=== PATIENT | male | born 1940 | race Caucasian/White ===

== ENCOUNTER 2017-09-06 15:56 | Inpatient (IN) | payer MEDICARE ==
[~2017-09-06] VITALS: Ht 177.8 cm; Wt 82.1 kg
[~2017-09-06 15:56] MED LIST: ADULT LOW DOSE81 MG PO; AMPICILLIN SOD500 MG PO; ASPIRIN; ASPIRIN EC81 M1; ASPIRIN81 M2 PO; BAYER CHEWABLE81 MG PO; BENICAR20 MG PO; BENICAR40 MG; CARAFATE1 GM/10 ML PO; CIPRO500 MG/5 M PO; CLONIDINE0.1; DEXILANT60 MG PO; FAMOTIDINE PO; FOLIC ACID 40400 MC1 PO; IMDUR 30 MG TAB30 M1 PO; IRON325 PO; IRON55 MG PO; LOPRESSOR25 PO; LOVASTAT20 PO; MIRALAX17 G1 PO; NITROGLYCERIN0.4 MG SL; NITROSTAT0.4 M1 SUBLING; NORCO 5-325 TA1 EACH PO; NORVASC 2.5 MG2.5 M1; NORVASC 5 MG TAB5 MG; PLAVIX 75 MG TA75 M1 PO; PLAVIX 75 MG TA75 MG PO; PRAVACHOL; PRAVACHOL40 MG PO; PREVACID30 MG PO; PRILOSEC 20 MG20 MG PO; PROPAFENONE 15150 MG PO; RITALIN10 MG; RITALIN10 MG PO; TOPROL XL25 MG PO; TOPROL XL50 MG PO; TYLENOL325 MG PO; VITAMIN B-12500 MCG PO; VITAMIN B12 1000MCG PO; ZOCOR40 MG PO
[2017-09-06] MEDS ORDERED: NITRO-DUR1 EAC1 TRANSDERM (16:48)
[2017-09-06] MEDS ORDERED: LOVASTATIN 20 M20 MG PO (16:49)
[2017-09-06] MEDS ORDERED: BENICAR40 MG PO (16:50)
[2017-09-06] MEDS ORDERED: PREDNISONE 10 M10 MG PO (16:50)
[2017-09-06] MEDS ORDERED: PREVACID30 MG PO (16:51)
[2017-09-06] MEDS ORDERED: BAYER CHEWABLE81 MG PO (16:52)
[2017-09-06] MEDS ORDERED: NORCO 5-325 TA1 EACH PO (16:54)
--- NOTE | 2017-09-06 18:22 | NUR ---
77 YEAR OLD MALE PATIENT ADMITTED TO ROOM 324 WITH A DX OF RHABDOMYLOSIS AND RIGHT CLAVICLE SEPARATION. PT STATES HE FELL DOWN THE STAIRS IN HIS HOME AND WAS UNABLE TO REACH HIS CELL PHONE TO CALL FOR HELP. PT LIVES WITH HIS BUT SHE IS CURRENTLY OUT OF TOWN. 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 PT'S LEFT LOWER LEG HAS BEEN PARALYZED SINCE THAT TIME AND HE USES A WHEELCHAIR TO GET AROUND. ADMISSION HISTORY AND ASSESSMENT COMPLETED. PT IS A/O X4. I INSTRUCTED HIM ON THE CALL, DON'T FALL PROTOCOL AND ORIENTED HIM TO THE ROOM, BED CONTROLS AND CALL LIGHT. FALL PRECAUTIONS IMPLEMENTED.
[2017-09-06 20:13] VITALS: BP 163/91
[2017-09-07 04:37] LABS: CALCIUM 7.3 mg/dL (8.5-10.1); CREATININE 0.8 mg/dL (0.6-1.3); HEMATOCRIT 28.8 % (42.0-52.0); HEMOGLOBIN 9.9 gm/dL (14.0-18.0); MCH 34.4 pg (26.0-34.0); MCHC 34.5 g/dL (28.0-37.0); MCV 99.7 fL (80.0-100.0); MPV 6.5 fl. (7.2-11.1); POTASSIUM 3.7 mmol/L (3.5-5.1); RBC 2.89 mil/uL (4.50-6.00); RDW-CV 13.8 % (10.5-14.5); WBC 4.5 thou/uL (4.0-11.0)
--- NOTE | 2017-09-07 05:42 | NUR ---
ASSUMED PT CARE AT 1930. PT A&O X4, COMPLAINING ABOUT TEMPERATURE IN ROOM. FAN OBTAINED TO CREATE AIR FLOW. HX OF RHABDOMYLOSIS AND RIGHT CLAVICLE SEPARATION WELL T4 COMPRESSION FRACTURE. PT HAS EXTENSIVE BRUISING ON BOTH ARMS AND RIGHT SHOULDER AND VARIOUS BRUISES ON LEGS. PT HAS CUT ABOVE AND BELOW LEFT EYE, PICTURE IN CHART. PT DENIES ANY BED SORES, ADAMANTLY REFUSED TO LET NURSING STAFF SEE HIS POSTERIOR. 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 PT LEFT LOWER LEG PARALYZED SINCE THAT TIME, USES WHEELCHAIR TO GET AROUND. PT ANGRY THAT BED ALARM WENT OFF WHEN HE SAT UP ON SIDE OF BED. PT DOES NOT HAVE HOME MED RITALIN, PT CURRENTLY OUT OF TOWN AND PT REFUSES TO INFORM HER OF FALL. SIGNED ADMISSION PAPERWORK, PLACED IN CHART. CALL LIGHT AND FREQUENTLY USED ITEMS WITHIN REACH. HOURLY ROUNDING IN PROGRESS, WILL CONTINUE TO MONITOR.
[2017-09-07 08:36] VITALS: BP 165/85
--- NOTE | 2017-09-07 10:05 | NUR ---
Nutrition: Pt admitted to [facility] with TBI, rhabdo. PMHx: guillain barre, HTN, CAD, chronic debility/uses wheelchair. Pt has UTI and SIRS. Wt: 181#. Eating 100% of Regular diet. BG WNL, albumin 3.3. No nutritional concerns at this time. Will follow pt weekly.
--- NOTE | 2017-09-07 18:32 | NUR ---
PT IS UP WITH ASSIST OF 1 AND GAITBELT. 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 I HAVE DISCUSSED HOME MEDICATIONS WITH PT TO REASURE HIM HE IS GETTING SAME MEDICATIONS WHILE HERE. RITALIN IS IN PHARMACY TO BE IDENTIFIED FROM HOME. DRY SCAB INTACT TO LT UPPER AND LOWER EYE. PT HAS MULTIPLE BRUSING OVER BODY FROM FALL. PT REFUSES TO LET NURSING OR THRAPIES INSPECT SKIN OF BUTTOX AND DENIES ANY SKIN PROBLEMS IN THAT AREA. PT DOES OWN [facility]. PT ALERT AND ABLE TO VOICE NEEDS BUT IS FORGETFULL.
[2017-09-07 20:21] VITALS: BP 165/71
--- NOTE | 2017-09-07 23:31 | NUR ---
ASSUMED CARE AT 1930. PATIENT S/P FALL WITH RHABDO, TBI, CONCUSSION, FACIAL BRUISING AND LACERATIONS. HX GUILLIAN BARRE. RESTING IN BED. TAKES PILLS WHOLE WITH WATER. ASSISTED WITH TURNS. BRUISING AND SCABBING NOTED OVER LEFT EYE. VOIDS PER URINAL. USES CALL LITE. REFUSES BED ALARM. HOURLY ROUNDS CONTINUE. CALL LITE IN REACH.
--- NOTE | 2017-09-08 00:21 | NUR ---
PATIENT REFUSES TURNS DESPITE EDUCATION.
--- NOTE | 2017-09-08 03:45 | NUR ---
C/O FEELING LIKE HE "BROKE A FEVER." BED LINENS WERE DAMP FROM PERSPIRATION. TEMP 98.2 ORALLY. LINENS CHANGED, SHIRT REMOVED, GOT INTO HOSPITAL GOWN. GIVEN APAP FOR C/O FEVER. HOURLY ROUNDS CONTINUE.
--- NOTE | 2017-09-08 05:55 | NUR ---
SLEPT MOST OF THE NIGHT. VOIDED PER URINAL. HOURLY ROUNDS CONTINUE. PATIENT REFUSES BED ALARM AND REFUSES TO CHANGE POSITIONS. STATES THAT HIS SHOULDERS ARE MORE COMFORTABLE WHILE HE IS ON HIS BACK. HOURLY ROUNDS CONTINUE. CALL LITE IN REACH.
[2017-09-08 07:50] VITALS: BP 142/94
--- NOTE | 2017-09-08 15:32 | NUR ---
ASSUMED CARE AT 0730. ALERT ORIENTED PLEASANT COOPERATIVE. HX OF TBI CONCUSSION AND PAST HX OF TOYA ROJAS LLE WEAKNESS FROM Inocencio ROJAS IN 2002. TRANSFERS WITH SBA G BELT SQUAT PIVOT FROM SITTING EDGE OF BED TO W/C. USES CALL LIGHT APPROPRIATELY FOR ASSIST. FEEDS SELF TAKES MEDS WITHOUT DIFFICULTY. PARTICIPATING IN THERAPIES TODAY. UP IN W/C SINCE BREAKFAST. STATES FEELING A DULL HEADACHE AND KIND OF FOGGY HEADED. DR. HANSEN CHANGED RITALIN TO TID AND 2 TABS PRN. TYLENOL 2 TABS PO FOR H/A LATE AFTERNOON.
[2017-09-08 20:19] VITALS: BP 124/71
--- NOTE | 2017-09-09 03:54 | NUR ---
PT NOT SLEEPING WELL HOPED. HAS HAD C/O NECK PAIN AND HEADACHE DURING THE NIGHT. PAIN MEDS GIVEN WITH SOME RELIEF. WHILE SITTING UP IN BED, PAIN STARTED TO RADIATE MORE TO SHOULDER. PT FRUSTRATED HE WANTS TO BE ABLE TO SLEEP BETTER. WILL CONTINUE TO MONITOR.
[2017-09-09 04:30] LABS: ABSOLUTE EOSINOPHILS 0.1 thou/uL (0.0-0.7); ABSOLUTE LYMPHOCYTES 0.7 thou/uL (0.8-5.3); ABSOLUTE MONOCYTES 0.6 thou/uL (0.0-1.2); ABSOLUTE NEUTROPHILS 3.3 thou/uL (1.6-8.1); BASOPHILS 0.5 %; EOSINOPHILS 1.1 %; HEMOGLOBIN 9.6 gm/dL (14.0-18.0); LYMPHOCYTES 14.7 %; MCH 34.2 pg (26.0-34.0); MCHC 34.4 g/dL (28.0-37.0); MCV 99.6 fL (80.0-100.0); MONOCYTES 13.7 %; MPV 6.7 fl. (7.2-11.1); NUCLEATED RBCS 0 /100WBC; PLATELET COUNT* 217 thou/uL (150-400); RBC 2.81 mil/uL (4.50-6.00); RDW-CV 14.4 % (10.5-14.5); WBC 4.7 thou/uL (4.0-11.0)
[2017-09-09 04:57] LABS: CREATININE 0.9 mg/dL (0.6-1.3); POTASSIUM 4.6 mmol/L (3.5-5.1)
--- NOTE | 2017-09-09 05:19 | NUR ---
ASSUMED CARES AT 1920. ALERT AND ORIENTED. PLEASANT. TAKES PILLS WHOLE WITHOUT ISSUES. HE IS A MIN ASSIST WITH GAIT BELT. SQUAT AND PIVOT TRANSFERS. UP TO BATHROOM AND DID HAVE BM. DID OWN CARES. USED URINAL AND STAFF EMPTIED. REFUSED BED ALARM. C/O NECK/MARTINEZ PAIN AND PAIN MEDS WERE GIVEN. SLEPT OFF AND ON. RESTING AT THIS TIME. WILL CONTINUE TO MONITOR.
[2017-09-09 07:30] VITALS: BP 148/79
--- NOTE | 2017-09-09 16:43 | NUR ---
ASSUMED CARE AT 0730. ALERT ORIENTED PLEASANT COOPERATIVE. HX OF TBI CONCUSSION AND RHABDOMYOLOSIS. TRANSFERS WITH SBA G BELT AND SQUAT PIVOT FROM BED TO W/C. HAS L LOWER EXTREMITY PARALYSIS FROM HX OF ALF ROJAS IN 2002. FEEDS SELF TAKES MEDS WITHOUT DIFFICULTY. USES CALL LIGHT APPROPRIATELY FOR ASSIST. TYLENOL 2 TABS PO FOR GENERALIZED DISCOMFORT WITH SOME RELIEF STATED.
--- NOTE | 2017-09-09 17:57 | NUR ---
TRANSFERRED TO W/C FOR MEAL WANTS TO HAVE HIS RITALIN BACK ON SCHEDULE AT HOME EVERY 3 HRS. HAS RESTED IN BED AT INTERVALS TODAY SLEEPING X 1. DENIES THE FOGGY FEELING HE EXPEREINCED YESTERDAY STATED IT WAS IMPROVED TODAY. USES CALL LIGHT APPROPRIATELY FOR ASSIST.
[2017-09-09 19:49] VITALS: BP 100/73; BP 119/67
--- NOTE | 2017-09-10 05:20 | NUR ---
ASSUMED CARES AT 1920. PT ALERT AND ORIENTED. PLEASANT. HAS YET TO ASK FOR ANYTHING FOR PAIN. HE IS A MIN ASSIST WITH GAIT BELT AND W/C. UP TO BATHROOM. DID HAVE BM. DOES OWN CARES. USES URINAL WELL. PT SLEPT WELL MOST OF THE NIGHT. NO COMPLAINTS. CALL LIGHT IN REACH. REFUSED TURNS AND ALARM ON BED.
[2017-09-10 07:54] VITALS: BP 139/86
--- NOTE | 2017-09-10 16:31 | NUR ---
WOUND NURSE: PATIENT SEEN AT REQUEST OF STAFF NURSE PERTAINING TO A WOUND UNDER THE LEFT EYE. REMOVED DRY GAUZE DRESSING AND AN ESCHAR CAME OFF WITH IT. CLEANSED THE AFFECTED AREA WITH BABY SHAMPOO AND COTTON TIPPED APPLICATOR, THEN RINSED WITH WATER, THEN PATTED DRY. APPLIED PETROLATUM GAUZE, THEN COVERED WITH GAUZE SPONGE CUT TO FIT. PLAN TO CHANGE DRESSING 2X/DAY AT THIS TIME. WOUND BED IS BEEFY RED WITH NONGRANULATING TISSUE PRESENT IN THE WOUND. THERE WAS RED AND YELLOW OPAQUE DRAINAGE UNDER THE ESCHAR WHEN IF CAME OFF. THERE IS NON PERIWOUND REDNESS, WARMTH, OR INDURATON NOTED.
--- NOTE | 2017-09-10 17:52 | NUR ---
ASSUMED CARE AT 0730. ALERT ORIENTED PLEASANT COOPERATIVE. HX OF FALL WITH TBI CONCUSSION PAST HX OF GUILLIAN BARRE WITH RESIDUAL PARALYSIS LLE. TRANSFERS WITH SBA G BELT AND SQUAT PIVOT FROM BED TO W/C. PARTICIPATING IN THERAPIES THROUGHOUT THE DAY. DENIES PAIN OR REQUESTS. USES CALL LIGHT APPROPRIATELY FOR ASSIST. L EYE HAD SOME MATTING TOGETHER OF LASHES THIS A.M. MOIST WASH CLOTH APPLIED AND WAS ABLE TO OPEN EYE AFTERWARDS. LACERATION L EYE WAS SEEN AND ES FROM WOUND CARE TX PT THIS AFTERNOON. FEEDS SELF AND TAKES MEDS WITHOUT DIFFICULTY.
[2017-09-10 19:49] VITALS: BP 160/94
--- NOTE | 2017-09-10 23:42 | NUR ---
ASSUMED CARES AT 1920. PT ALERT AND ORIENTED. PLEASANT. C/O OF SOME SLIGHT NECK PAIN. TYLENOL GIVEN. TAKES PILLS WITHOUT ISSUES. DRESSING UNDER LEFT EYE. SEROUS SANGUINOUS DRAINAGE TO GAUZE DRESSING NOTED. AREA WAS CLEANSED AND GAUZE REPLACED. PT IS A MIN ASSIST WITH GAIT BELT AND W/C. UP TO BATHROOM. DOES OWN CARES. USES URINAL WELL AND RN EMPTIES. STAYED UP UNTIL 2330 BEFORE GETTING INTO BED. CALL LIGHT IN REACH. WILL CONTINUE TO MONITOR.
[2017-09-11 05:43] LABS: ABSOLUTE EOSINOPHILS 0.1 thou/uL (0.0-0.7); ABSOLUTE LYMPHOCYTES 0.7 thou/uL (0.8-5.3); ABSOLUTE MONOCYTES 0.6 thou/uL (0.0-1.2); ABSOLUTE NEUTROPHILS 2.6 thou/uL (1.6-8.1); BASOPHILS 0.8 %; EOSINOPHILS 1.4 %; HEMATOCRIT 28.9 % (42.0-52.0); HEMOGLOBIN 10.2 gm/dL (14.0-18.0); MCH 34.7 pg (26.0-34.0); MCHC 35.1 g/dL (28.0-37.0); MCV 98.8 fL (80.0-100.0); MONOCYTES 14.7 %; MPV 6.8 fl. (7.2-11.1); NUCLEATED RBCS 0 /100WBC; PLATELET COUNT* 265 thou/uL (150-400); POLYS 66.1 %; RBC 2.93 mil/uL (4.50-6.00); RDW-CV 14.1 % (10.5-14.5); WBC 3.9 thou/uL (4.0-11.0)
[2017-09-11 06:00] LABS: ALBUMIN 2.7 g/dL (3.4-5.0); CALCIUM 8.2 mg/dL (8.5-10.1); CREATININE 0.9 mg/dL (0.6-1.3); POTASSIUM 3.9 mmol/L (3.5-5.1); TOTAL BILIRUBIN 0.5 mg/dL (<0.1-1.0); TOTAL PROTEIN 5.4 g/dL (6.4-8.2)
--- NOTE | 2017-09-11 06:03 | NUR ---
PT AWAKE AND C/O NECK, SHOULDER, HEADACHE PAIN. REQUESTED TYLENOL. SLEPT WELL FOR SHORT PERIOD OF TIME. USED URINAL AND RN EMPTIED. CALL LIGHT IN REACH.
[2017-09-11 08:00] VITALS: BP 144/94
--- NOTE | 2017-09-11 15:48 | NUR ---
SW met with pt to complete initial assessment, introduce self, and SW role. Pt aka "Jeison" was alert and oriented and talkative. Pt is independent at home; he has been dealing with [facility] for 14 years. Pt has 2 wcs and he uses method to scoot on his bottom to go down the stairs. Pt does not anticipate needing any HH services or any other DME. Pt did not express any concerns or questions at this time. SW to continue to follow to assist with safe dc planning.
--- NOTE | 2017-09-11 16:18 | NUR ---
ASSUMMED CARE OF PT AT 0730, PT ALERT AND ORIENTED, PT TRANSFERS WITH SBA AND GB WITH A SQUAT PIVOT, WEAKNESS IN BILATERAL LEGS, PT TAKING FOOD AND FLUIDS WELL PT COMPLAINS OF PAIN IN HIS NECK AND SHOULDER, ORDER OBTAINED FOR LIDOCAINE PATACH, APPLIED TO SHOULDER, SCAB TO LEFT EYEBROW INTACT, DRESSING CHANGED TO AREA UNDER LEFT EYE, PT OBTAINED SMALL SKIN TEAR ON RIGHT ARM WHILE WORKING IN PHYSICAL THERAPY THIS AM, MEPILEX APPLIED, MEPILEX TO WU DRY AND INTACT, PT REFUSES TO HAVE BED OR CHAIR ALARM, PT EDUCATED ON REHAB ROUTINE AND FALL PRECAUTIONS, PT STATES WILL USE CALL LIGHT, PT ALSO CONCERNED HE IS NOT GETTING HIS RITALIN AT HOME, ORDER OBTAINED TO GIVE RITALIN PER HIS HOME REGIMEN, PT PARTICIPATED IN ALL THERAPIES, REFUSES TO GO TO DININGROOM FOR MEALS, HOURLY ROUNDING COMPLETED, ASSESSMENT COMPLETE, WILL CONTINUE TO MONITOR.
[2017-09-11 20:07] VITALS: BP 154/98
--- NOTE | 2017-09-12 05:11 | NUR ---
ASSUMED PATIENT CARE AT 1900. PATIENT ALERT AND ORIENTED TIMES FOUR. MINOR COMPLAINT OF PAIN, MANAGED WITH ORAL MEDICATION. ABLE TO TRANSFER SELF FROM WC TO BED WITH STB. PATIENT DOES NOT AMBULATE. ALL SELF CARE, CLOTHING AND HYGEINE NEEDS, PATIENT IS ABLE TO MANAGE INDEPENDENTLY. HOURLY ROUNDING AND NURSING ASSESSMENT COMPLETED DOCUMENTED.
[2017-09-12 07:51] VITALS: BP 150/91
--- NOTE | 2017-09-12 16:00 | NUR ---
SW met with pt to review team conference summary and discuss team's recommendation for reteam with pt dc on Sunday after team conference. Pt was in agreement with plan. SW to continue to follow to assist with safe dc planning; home with , HH services to follow, pt has all needed DME.
--- NOTE | 2017-09-12 17:43 | NUR ---
ASSUMED CARE AT 0730 PATIENT ALERT/ORIENTED, PAIN TO RIGHT SHOULDER, LIDODERM AND FENTANYL PATCH APPLIED, UP WITH STANDBY WITH SLIDE BETWEEN W/C AND BED. PARTICIPATED IN ALL THERAPIES TODAY, DOES NOT LIKE TO GO TO DINING ROOM, EATS IN ROOM. HOURLY ROUNDING COMPLETED, BED/CHAIR ALARMS IN PLACE. CALL LIGHT IN REACH, RETEAMED FOR ANOTHER WEEK.
[2017-09-12 19:46] VITALS: BP 154/80
--- NOTE | 2017-09-13 05:08 | NUR ---
ASSUMED PT CARE AT 1930. PT ALERT AND ORIENTED X4, POLITE AND COOPERATIVE WITH CARES. TAKES PILLS WHOLE WITH WATER WITHOUT DIFFICULTY. PT HAS DRESSING UNDER LEFT EYE, C/D/I AND OCCLUSIVE. PT IS MIN ASSIST WITH GAIT BELT AND WHEELCHAIR. STOOL X1 THIS SHIFT. PT STAYED UP LATE, TO BED AT 2330. PRN TYLENOL AT THAT TIME FOR GENERAL DISCOMFORT. PT USES URINAL OVERNIGHT, STAFF EMPTIES. USES CALL LIGHT APPROPRIATELY. CALL LIGHT AND FREQUENTLY USED ITEMS WITHIN REACH. HOURLY ROUNDING IN PROGRESS, WILL CONTINUE TO MONITOR.
[2017-09-13 07:46] VITALS: BP 143/86
--- NOTE | 2017-09-13 17:04 | NUR ---
ASSUMED CARE AT 0730 PATIENT ALERT/ORIENTED, UP WITH STANDBY ASSIST PATIENT TRANSFERS WITH STAND/PIVOT TO CHAIR, PARTICIPATED IN ALL THERAPIES TODAY, REFUSES TO GO TO DINING ROOM FOR MEALS, BED/CHAIR ALARMS IN PLACE, CALL LIGHT IN REACH. DRESSING CHANGED TO LEFT CHEEK AREA. LIDODERM PATCH TO RIGHT SHOULDER FOR PAIN CONTROL. HOURLY ROUNDING COMPLETED
[2017-09-13 20:13] VITALS: BP 117/110
--- NOTE | 2017-09-14 05:17 | NUR ---
ASSUMED PT CARE AT 1930. PT ALERT AND ORIENTED X4, POLITE AND COOPERATIVE WITH CARES. TAKES PILLS WHOLE WITH WATER WITHOUT DIFFICULTY. PT HAS DRESSING UNDER LEFT EYE, C/D/I AND OCCLUSIVE. PT IS MIN ASSIST WITH GAIT BELT AND WHEELCHAIR. STOOL X1 THIS SHIFT. PT STAYED UP LATE, TO BED AT 2330. PRN TYLENOL AT HS FOR GENERAL DISCOMFORT. PT USES URINAL OVERNIGHT, STAFF EMPTIES. USES CALL LIGHT APPROPRITELY. CALL LIGHT AND FREQUENTLY USED ITEMS WITHIN REACH. HOURLY ROUNDING IN PROGRESS, WILL CONTINUE TO MONITOR.
[2017-09-14 07:30] VITALS: BP 146/88
--- NOTE | 2017-09-14 16:55 | NUR ---
ASSUMED CARE AT 0730. ALERT ORIENTED PLEASANT COOPERATIVE. HX OF TBI CONCUSSION OLD GUILLIAN BARRE WITH L LEG PARALYSIS. PARTICIPATING IN THERAPIES THROUGHOUT THE DAY. TRANSFERS WITH SBA G BELT SQUAT PIVOT TO W/C AND TOILET. ABLE TO DO HYGEINE AND CLOTHING ADJUSTMENTS. MEDICATED WITH TYLENOL TIMES X 1 FOR RT. SHOULDER PAIN THIS A.M. USES CALL LIGHT APPROPRIIATELY. FEEDS SELF APPETITE GOOD.
[2017-09-14 20:14] VITALS: BP 147/101
--- NOTE | 2017-09-15 05:19 | NUR ---
ASSUMED PT CARE AT 1930. PT ALERT AND ORIENTED X4, POLITE AND COOPERATIVE WITH CARES. HX OF TBI, CONCUSSION AND OLD GUILLIAN BARRE WITH LEFT LEG PARALYSIS. PT HAS DRESSING UNDER LEFT EYE, C/D/I AND OCCLUSIVE. PT IS MIN ASSIST WITH GAIT BELT, SQUAT/PIVOT TO WEELCHAIR. PRN TYLENOL ONCE THIS SHIFT. PT USES URINAL OVERNIGHT, STAFF EMPTIES. USES CALL LIGHT APPROPRIATELY. CALL LIGHT AND FREQUENTLY USED ITEMS WITHIN REACH. HOURLY ROUNDING IN PROGRESS, WILL CONTINUE TO MONITOR.
[2017-09-15 07:00] VITALS: BP 129/81
--- NOTE | 2017-09-15 16:58 | NUR ---
ASSUMED CARE AT 0730 PATIENT ALERT/ORIENTED, TYLENOL GIVEN FOR RIGHT SHOULDER PAIN AND LIDOCAINE PATCH APPLIED TO RIGHT SHOULDER, UP WITH STANDBY TO W/C WITH STAND/PIVOT. PARTICIPATED IN ALL THERAPIES TODAY, DOES NOT LIKE TO GO TO THE DINING ROOM STAYS IN ROOM FOR MEALS. HOURLY ROUNDING COMPLETED. BED/CHAIR ALARMS IN PLACE CALL LIGHT IN REACH.
[2017-09-15 19:45] VITALS: BP 139/78
--- NOTE | 2017-09-15 19:45 | NUR ---
SITTING UP IN W/C READING THE NEWSPAPER AND WATCHING TV. IN GOOD SPIRITS. TALKATIVE AND PLEASANT. DENIES DISCOMFORT. STATES WOULD LIKE TO TAKE TYLENOL AT BEDTIME THOUGH. SNACK PROVIDED.
[2017-09-16 03:53] LABS: ABSOLUTE EOSINOPHILS 0.1 thou/uL (0.0-0.7); ABSOLUTE LYMPHOCYTES 0.9 thou/uL (0.8-5.3); ABSOLUTE MONOCYTES 0.7 thou/uL (0.0-1.2); ABSOLUTE NEUTROPHILS 3.8 thou/uL (1.6-8.1); BASOPHILS 0.5 %; EOSINOPHILS 1.3 %; HEMATOCRIT 30.8 % (42.0-52.0); HEMOGLOBIN 10.4 gm/dL (14.0-18.0); LYMPHOCYTES 16.7 %; MCHC 33.9 g/dL (28.0-37.0); MCV 100.2 fL (80.0-100.0); MONOCYTES 12.8 %; MPV 6.3 fl. (7.2-11.1); NUCLEATED RBCS 0 /100WBC; PLATELET COUNT* 323 thou/uL (150-400); POLYS 68.7 %; RBC 3.07 mil/uL (4.50-6.00); RDW-CV 14.4 % (10.5-14.5); WBC 5.6 thou/uL (4.0-11.0)
[2017-09-16 04:35] LABS: ALBUMIN 2.8 g/dL (3.4-5.0); CALCIUM 8.7 mg/dL (8.5-10.1); CREATININE 0.9 mg/dL (0.6-1.3); POTASSIUM 4.3 mmol/L (3.5-5.1); TOTAL BILIRUBIN 0.4 mg/dL (<0.1-1.0); TOTAL PROTEIN 5.5 g/dL (6.4-8.2)
--- NOTE | 2017-09-16 05:01 | NUR ---
WENT TO BED AT 2330. TRANSFERRED FROM W/C TO BED WITH SBA, GAITBELT, STAND, PIVOT. USED URINAL X ONE DURING THE NIGHT. NO COMPLAINTS VOICED. HOURLY ROUNDING IN PROGRESS.
[2017-09-16 07:16] VITALS: BP 146/90
--- NOTE | 2017-09-16 17:00 | NUR ---
ASSUMED CARE AT 0730, PATIENT ALERT/ORIENTED, PAIN TO RIGHT SHOULDER, LIDOCAINE PATCH APPLIED AND TYLENOL GIVEN WITH GOOD RESULTS, HOURLY ROUNDING COMPLETED, UP WITH STANDBY ASSIST TO W/C. REFUSED BATH TODAY. VISITED WITH FAMILY THROUGHOUT DAY, DOES NOT GO TO DINING ROOM, PREFERS TO EAT IN ROOM. BED/CHAIR ALARMS IN PLACE, CALL LIGHT IN REACH.
[2017-09-16 19:35] VITALS: BP 135/81
--- NOTE | 2017-09-16 19:35 | NUR ---
SITTING UP IN WHEELCHAIR READING THE NEWSPAPER. VERY CHEERFUL AND TALKATIVE. DENIES DISCOMFORT. TRANSFERRED FROM W/C TO TOILET WITH SBA, GAITBELT, STAND, PIVOT. STATES HAD A LARGE BM. DID OWN HYGIENE AND CLOTHING ADJUSTMENTS. AFTER TRANSFERRING BACK FROM THE TOILET TO THE W/C UNLOCKED THE W/C BEFORE HE WAS SITUATED IN THE W/C. PT WAS DEFENSIVE WHEN POINTED OUT THAT HE NEEDS TO BE SITTED ALL THE WAY BACK INTO THE W/C BEFORE UNLOCKING IT. SNACK PROVIDED.
--- NOTE | 2017-09-17 06:08 | NUR ---
WENT TO BED ABOUT 2230 AND FELL ASLEEP AFTER ABOUT 30 MINUTES. AWAKENED AT 0100 WITH C/O INDIGESTION. MYLANTA GIVEN. NO FURTHER COMPLAINTS AND HAS RESTED SINCE THEN. HOURLY ROUNDING IN PROGRESS.
[2017-09-17 07:38] VITALS: BP 120/68
--- NOTE | 2017-09-17 15:02 | NUR ---
ASSUMED CARE AT 0730. ALERT ORIENTED PLEASANT COOPERATIVE. HX OF TBI AND CONCUSSION OLD HX GUILLIAN BARRE L LEG PARALYSIS. TRANSFERS WITH SBA G BELT SQUAT PIVOT FROM BED TO W/C PROPELLS SELF INDEPENDENTLY. MEDICATED WITH TYLENOL 2 TABS FOR NECK PAIN BEFORE THERAPIES START. FEEDS SELF TAKES MEDS WITHOUT DIFFICULTY. APPETITE GOOD. PARTICIPATING IN THERAPIES.
[2017-09-17 20:45] VITALS: BP 128/74
--- NOTE | 2017-09-17 20:45 | NUR ---
SITTING UP IN BED TALKING ON THE PHONE. IN GOOD SPIRITS. DENIES DISCOMFORT. MODIFIED INDEPENDENT IN ROOM. PATIENT HAD W/C NEXT TO BED BUT W/C WASN'T LOCKED. PT STATES DOESN'T KEEP HIS W/C LOCKED AT HOME BUT THINKS IT MIGHT BE A GOOD IDEA TO GET INTO THE HABIT.
--- NOTE | 2017-09-18 05:19 | NUR ---
WENT TO BED ABOUT 2300. TOOK TYLENOL AT THAT TIME FOR C/O MILD RIGHT SHOULDER PAIN AND STATES TYLENOL HELPS HIM SLEEP. USED URINAL X TWO DURING THE NIGHT. HOURLY ROUNDING IN PROGRESS.
[2017-09-18 07:35] VITALS: BP 124/83
--- NOTE | 2017-09-18 13:42 | NUR ---
ASSUMED CARE AT 0730. ALERT ORIENTED PLEASANT COOPERATIVE. HX OF TBI CONCUSSION OLD GUILLIDAVID BARRE WITH L LOWER EXTREMITY PARALYSIS. MOD I IN HIS ROOM SINCE YESTERDAY AFTERNOON. TRANSFERS FROM BED TO W/C AND TO TOILET. TYLENOL 2 TABS PO THIS A.M. BEFORE THERAPIES STARTED FOR RT. SHOULDER PAIN. APPETITE GOOD FEEDS SELF TAKES MEDS WITHOUT DIFFICULTY. ATE LUNCH IN DR VISITING WITH ANOTHER PT. WHO INVITED HIM TO JOIN HER.
[2017-09-18 14:17] VITALS: BP 124/83
[2017-09-18 14:24] VITALS: BP 124/83
--- NOTE | 2017-09-18 15:19 | NUR ---
SW met with pt to discuss safe dc planning and discussed team conference meeting for tomorrow to reteam with possibility of dc after team conference. Pt was hopeful he would be able to dc tomorrow and expressed his confidence that he would be able to return home with . Pt has all needed DME. SW discussed possibility of HH services to which pt declined services. SW to continue to follow to assist with safe dc planning.
[2017-09-18 19:45] VITALS: BP 143/88
--- NOTE | 2017-09-18 23:47 | NUR ---
ASSUMED CARE AT 1930. PATIENT S/P FALL AND TBI. HX TOYA ROJAS. MOD I IN ROOM. IN W/C UNTIL AROUND 2199. STAND PIVOTS FROM W/C TO BED. VOIDS PER TOILET. TAKES PILLS WHOLE WITH WATER. FACIAL BRUSING AND SCABS MUCH IMPROVED COMPARED TO ADMISSION. CALL LITE IN REACH. HOURLY ROUNDS CONTINUE.
--- NOTE | 2017-09-19 06:11 | NUR ---
SLEPT MOST OF THE NIGHT. HAS BEEN MOD I IN HIS ROOM. DID NOT NEED ASSIST GETTING READY FOR BED. NO C/O PAIN. HOURLY ROUNDS CONTINUE, CALL LITE IN REACH.
[2017-09-19 08:00] VITALS: BP 155/87
[2017-09-19 08:12] VITALS: BP 155/87
[2017-09-19 13:45] VITALS: BP 124/83
--- NOTE | 2017-09-19 13:48 | NUR ---
SW spoke with pt to review team conference summary and discuss safe dc planning. Pt to dc home with today. Orders for HH, however, pt declined both times SW offered arranging HH services. SW inquired about pt ride home, pt seemed to think that his will come pick him up and provide transportation home. SW explained to pt to mention to team if any needs arise prior to dc. No other questions or needs expressed. Pt has all needed DME at home and pt feels confident in returning home and plans to be even more careful in his mobility tasks.
--- NOTE | 2017-09-19 16:23 | NUR ---
PT CARE ASSUMED THIS AM, ASSESSMENT AND VITAL SIGNS COMPLETED DOCUMENTED. PT HAS MET HIS DISCHARGE GOALS AND DISCHARGE ORDERS WRITTEN BY DR HANSEN. VERBAL AND PRINTED DISCHARGE INSTRUCTIONS PROVIDED TO PT. PT AND HIS BELONGINGS TRANSPORTED TO THE EXIT, ASSISTED INTO CAR, DISCHARGED HOME WITH HIS .
--- NOTE | 2017-10-16 13:29 | PLAN ---
[facility] [address] [place] [address] REHAB UNIT PLAN OF CARE Name: JUAN C RED Room: [address] IN [facility]#: [id number] Admission: 09/06/17 Attend Phys: Jessica Crandall DO Discharge: 09/19/17 Date of : 36 Report #: [id number] THIS REPORT FOR: //name// CC: Jace Crandall OVERALL PLAN OF CARE This is a 77-year-old male status post acute hospitalization at [facility] starting on 09/01/2017 when he was unable to move. He had hit his head, suffered a traumatic brain injury. CT showed no acute intracranial process; however, he did have some T4 mild compression fractures, canal stenosis, AC joint separation and is admitted to remain safe in the home setting. Rehabilitation prognosis is good. Medical prognosis is good. Estimated length of stay is 14-16 days with discharge disposition to the home setting with supportive family. No significant change. There is mild impairment of comprehension, expression, social interaction and problem solving. Previous level of function independent. Current level of function is minimum to moderate assistance of 1-2 depending on therapy, activity and time of day. Physical therapy will see the patient 60-90 minutes per day, 5 days per week, working on upper and lower body strength, balance, coordination, navigation. Occupational therapy will see the patient 60-90 minutes per day, 5 days per week, working on upper and lower body strength, balance, coordination, navigation, bathing, dressing, and toileting. Speech and language pathology will work with the patient 30-90 minutes per day, 5 days per week, working on comprehension, memory, expression, and social interaction. This is an overall plan of care and may change from time to time. We will team him weekly and make changes to the plan of care as needed. <ELECTRONICALLY SIGNED> By: Jessica Crandall DO 10/16/17 1329 [id number] Crandall DO /nt
--- NOTE | 2017-10-16 13:29 | D ---
[facility] [address] [place] [address] DISCHARGE SUMMARY Name: JUAN C RED Room: [address] IN .R.#: [id number] Admission: 09/06/17 Attend Phys: Jessica Crandall DO Discharge: 09/19/17 Date of : 36 Report #: [id number] THIS REPORT FOR: //name// CC: Jace Crandall DATE OF SERVICE: 09/19/2017 DISCHARGE DIAGNOSES: T4 compression fracture, right AC separation, traumatic brain injury with concussion. DISCHARGE DISPOSITION: To the home setting with home health PT, OT and nursing. The patient did suffer a fall prior to his acute hospitalization. He has had a significant brain injury, right AC separation and a T4 compression fracture. 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 He progressed well in his therapies to a modified independent level of care in his room. MEDICATIONS: Reviewed and reconciled by myself and are available in the MAR. Any prescriptions needed were given for 1 month's time. He will follow up with his primary care physician within 1 week and his neurologist within 1-2 weeks. Maintain fall precautions. He is discharged at wheelchair level of care. DISCHARGE PHYSICAL EXAMINATION: GENERAL: Alert, oriented, in no apparent distress. VITAL SIGNS: Reviewed and are stable. HEENT: Atraumatic, normocephalic. Pupils equal, round, reactive. ABDOMEN: Soft, nontender, nondistended. NEUROLOGIC: Cranial nerves 2-12 are grossly intact with no focal neuro deficits, ecchymosis and lacerations about the left periorbital area are healing nicely. SKIN: Warm and dry. No rashes or lesions otherwise noted. MUSCULOSKELETAL: No clubbing, cyanosis or edema. <ELECTRONICALLY SIGNED> By: Jessica Crandall DO 10/16/17 1329 [id number] Crandall DO /nt
== END 2017-09-19 16:27 | disposition home or self-care (01) | DRG 86 ==
LOC: M.REH 15:56
PROVIDERS: Internal Medicine; ADMIT Physical Medicine & Rehabilitation
DX: S06.9X0A Unspecified intracranial injury without loss of consciousness, initial encounter (principal); S22.049A Unspecified fracture of fourth thoracic vertebra, initial encounter for closed fracture; G61.0 Guillain-Barre syndrome; M62.82 Rhabdomyolysis; G81.94 Hemiplegia, unspecified affecting left nondominant side; G83.9 Paralytic syndrome, unspecified; S01.81XA Laceration without foreign body of other part of head, initial encounter; K21.9 Gastro-esophageal reflux disease without esophagitis; I10 Essential (primary) hypertension; I25.10 Atherosclerotic heart disease of native coronary artery without angina pectoris; E78.5 Hyperlipidemia, unspecified; M06.9 Rheumatoid arthritis, unspecified; Z88.6 Allergy status to analgesic agent; Z88.8 Allergy status to other drugs, medicaments and biological substances; Z95.5 Presence of coronary angioplasty implant and graft; Z85.46 Personal history of malignant neoplasm of prostate; W10.8XXA Fall (on) (from) other stairs and steps, initial encounter; Y93.89 Activity, other specified; Y92.89 Other specified places as the place of occurrence of the external cause; Y99.8 Other external cause status

== ENCOUNTER 2018-02-26 15:05 | Inpatient (IN) | payer MEDICARE ==
[~2018-02-26] VITALS: Ht 182.9 cm; Wt 79.8 kg
[~2018-02-26 15:05] MED LIST changes: +BENICAR40 MG PO; +LOVASTATIN 20 M20 MG PO; +NITRO-DUR1 EAC1 TRANSDERM; +PREDNISONE 10 M10 MG PO
[2018-02-26] MEDS ORDERED: VITAMIN B-12500 MCG PO (15:12)
[2018-02-26] MEDS ORDERED: CALCIUM CITRAT250 MG PO (15:13)
[2018-02-26] MEDS ORDERED: FOLIC ACID 40400 MC1 PO (15:13)
[2018-02-26] MEDS ORDERED: IRON325 PO (15:13)
[2018-02-26 15:14] VITALS: BP 169/98
[2018-02-26 15:39] LABS: ABSOLUTE EOSINOPHILS 0.1 thou/uL (0.0-0.7); ABSOLUTE LYMPHOCYTES 0.6 thou/uL (0.8-5.3); ABSOLUTE MONOCYTES 0.7 thou/uL (0.0-1.2); ABSOLUTE NEUTROPHILS 4.8 thou/uL (1.6-8.1); BASOPHILS 0.6 %; EOSINOPHILS 1.8 %; HEMATOCRIT 37.6 % (42.0-52.0); HEMOGLOBIN 12.9 gm/dL (14.0-18.0); LYMPHOCYTES 10.1 %; MCH 32.1 pg (26.0-34.0); MCHC 34.4 g/dL (28.0-37.0); MCV 93.1 fL (80.0-100.0); MONOCYTES 11.8 %; MPV 6.3 fl. (7.2-11.1); NUCLEATED RBCS 0 /100WBC; PLATELET COUNT* 213 thou/uL (150-400); POLYS 75.7 %; RBC 4.04 mil/uL (4.50-6.00); RDW-CV 13.5 % (10.5-14.5); WBC 6.3 thou/uL (4.0-11.0)
[2018-02-26 15:43] LABS: CALCIUM 8.5 mg/dL (8.5-10.1); CREATININE 0.9 mg/dL (0.6-1.3); POTASSIUM 4.6 mmol/L (3.5-5.1)
[2018-02-26 15:48] LABS: TOTAL BILIRUBIN 0.5 mg/dL (<0.1-1.0); TOTAL PROTEIN 6.9 g/dL (6.4-8.2)
[2018-02-26 17:11] LABS: URINE BILIRUBIN NEGATIVE (Negative); URINE BLOOD NEGATIVE (Negative); URINE CLARITY CLEAR; URINE COLOR YELLOW; URINE GLUCOSE-RANDOM NEGATIVE (Negative); URINE KETONES NEGATIVE (Negative); URINE LEUKOCYTES-REFLEX NEGATIVE (Negative); URINE NITRITE-REFLEX NEGATIVE (Negative); URINE PROTEIN NEGATIVE (Negative); URINE UROBILINOGEN 0.2 E.U./dl (0.2-1.0)
[2018-02-26 19:09] VITALS: BP 132/84
[2018-02-26 20:00] VITALS: BP 142/98
[2018-02-27] VITALS: BP 133/83
[2018-02-27 04:00] VITALS: BP 148/97
[2018-02-27 04:52] LABS: ABSOLUTE EOSINOPHILS 0.1 thou/uL (0.0-0.7); ABSOLUTE LYMPHOCYTES 0.6 thou/uL (0.8-5.3); ABSOLUTE MONOCYTES 0.8 thou/uL (0.0-1.2); ABSOLUTE NEUTROPHILS 3.7 thou/uL (1.6-8.1); BASOPHILS 0.6 %; EOSINOPHILS 2.6 %; HEMATOCRIT 32.8 % (42.0-52.0); HEMOGLOBIN 11.4 gm/dL (14.0-18.0); LYMPHOCYTES 11.2 %; MCH 32.6 pg (26.0-34.0); MCHC 34.9 g/dL (28.0-37.0); MCV 93.4 fL (80.0-100.0); MONOCYTES 14.9 %; MPV 6.5 fl. (7.2-11.1); NUCLEATED RBCS 0 /100WBC; PLATELET COUNT* 179 thou/uL (150-400); POLYS 70.7 %; RBC 3.51 mil/uL (4.50-6.00); RDW-CV 14.1 % (10.5-14.5); WBC 5.2 thou/uL (4.0-11.0)
[2018-02-27 05:06] LABS: CALCIUM 7.9 mg/dL (8.5-10.1); CREATININE 0.7 mg/dL (0.6-1.3); POTASSIUM 4.6 mmol/L (3.5-5.1)
[2018-02-27 08:41] VITALS: BP 132/95
[2018-02-27 12:14] VITALS: BP 154/90
--- NOTE | 2018-02-27 13:54 | EKG ---
[place] [address] ELECTROCARDIOGRAM REPORT Name: JUAN C RED Room: [address] ADM IN M.R.#: [id number] Admission: 02/26/18 Attend Phys: Mitchell Torres MD Discharge: Date of : 36 Report #: [id number] THIS REPORT FOR: //name// [facility] ED Test Date: 2018-02-26 Test Time: 15:41:38 Pat Name: JUAN C RED Department: Room: [address] Gender: M Senior Loan Processor: Shana RIZVI : 1940 Requested By: Sapna Williamson Order Number: [id number] Laurie MD: Figueroa Jeff Measurements Intervals Early Rate: 120 P: 15 MN: 160 QRS: -10 QRSD: 98 T: 73 QT: 306 QTc: 433 Interpretive Statements Sinus tachycardia Atrial premature complex Compared to ECG 12/03/2015 10:23:36 Atrial premature complex(es) now present Sinus rate has increased Myocardial infarct finding no longer present Electronically Signed On 02-27-2018 13:54:30 CDT by Figueroa Jeff [email or web address] <ELECTRONICALLY SIGNED> By: Figueroa Jeff MD, [facility] 02/27/18 1354 1541 [id number] Figueroa Jeff MD, [facility] /EPI
[2018-02-27 16:08] LABS: CORTISOL AM 8.4 ug/dL (6.2-19.4)
[2018-02-27 20:00] VITALS: BP 129/88
[2018-02-28] VITALS: BP 140/85
[2018-02-28 04:00] VITALS: BP 112/66
[2018-02-28 08:00] VITALS: BP 127/75
[2018-02-28 10:17] LABS: CALCIUM 8.1 mg/dL (8.5-10.1); CREATININE 0.7 mg/dL (0.6-1.3); POTASSIUM 3.5 mmol/L (3.5-5.1)
[2018-02-28 12:00] VITALS: BP 121/62
[2018-02-28 16:00] VITALS: BP 128/89
[2018-02-28 20:00] VITALS: BP 140/91
[2018-03-01] VITALS (7 sets, daily range): BP systolic 136–163; BP diastolic 71–104
[2018-03-01 04:22] LABS: HEMATOCRIT 32.7 % (42.0-52.0); HEMOGLOBIN 11.3 gm/dL (14.0-18.0); MCH 32.5 pg (26.0-34.0); MCHC 34.5 g/dL (28.0-37.0); MCV 94.2 fL (80.0-100.0); MPV 6.5 fl. (7.2-11.1); NUCLEATED RBCS 0 /100WBC; PLATELET COUNT* 204 thou/uL (150-400); RBC 3.47 mil/uL (4.50-6.00); RDW-CV 13.5 % (10.5-14.5); WBC 4.7 thou/uL (4.0-11.0)
[2018-03-01 04:59] LABS: ALBUMIN 2.8 g/dL (3.4-5.0); CALCIUM 7.9 mg/dL (8.5-10.1); CREATININE 0.8 mg/dL (0.6-1.3); POTASSIUM 4.4 mmol/L (3.5-5.1); TOTAL BILIRUBIN 0.3 mg/dL (<0.1-1.0); TOTAL PROTEIN 5.8 g/dL (6.4-8.2)
[2018-03-01 05:43] LABS: ABSOLUTE LYMPHOCYTES 0.1 thou/uL (0.8-5.3); ABSOLUTE NEUTROPHILS 4.6 thou/uL (1.6-8.1); ANISOCYTOSIS 1+; PLATELET ESTIMATE ADEQUATE; POIKILOCYTOSIS 1+
[2018-03-02 00:15] VITALS: BP 152/89
[2018-03-02 04:38] VITALS: BP 142/93
[2018-03-02 04:49] LABS: HEMATOCRIT 32.5 % (42.0-52.0); HEMOGLOBIN 11.2 gm/dL (14.0-18.0); MCH 32.4 pg (26.0-34.0); MCHC 34.5 g/dL (28.0-37.0); MCV 93.9 fL (80.0-100.0); MPV 6.8 fl. (7.2-11.1); RBC 3.46 mil/uL (4.50-6.00); RDW-CV 13.8 % (10.5-14.5); WBC 7.5 thou/uL (4.0-11.0)
[2018-03-02 05:12] LABS: ALBUMIN 2.7 g/dL (3.4-5.0); CALCIUM 8.1 mg/dL (8.5-10.1); CREATININE 0.9 mg/dL (0.6-1.3); MAGNESIUM 1.6 mg/dL (1.8-2.4); POTASSIUM 3.9 mmol/L (3.5-5.1); TOTAL BILIRUBIN 0.3 mg/dL (<0.1-1.0); TOTAL PROTEIN 6.2 g/dL (6.4-8.2)
[2018-03-02 08:57] VITALS: BP 152/90
[2018-03-02 13:04] VITALS: BP 146/92
[2018-03-02] MEDS ORDERED: PREDNISONE 20 M20 MG PO (13:54)
[2018-03-02 14:06] VITALS: BP 140/90
--- NOTE | 2018-03-16 07:14 | CON ---
[facility] [address] [place] [address] CONSULTATION Name: NEDAJUAN C W Room: [address] IN M.R.#: [id number] Admission: 02/26/18 Attend Phys: Mitchell Torres MD Discharge: 03/02/18 Date of : 36 Report #: [id number] THIS REPORT FOR: //name// CC: Mitchell Thakkar DATE OF SERVICE: 02/27/2018 CONSULTATION OBTAINED BY: Mitchell Torres M.D. REASON FOR CONSULTATION: Management of hyponatremia. 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 He is wheelchair dependent, but otherwise, appears in fairly good health. He also has history of polymyalgia rheumatica. The patient has noticed a slight worsening in his upper extremity strength and generalized weakness for the past many weeks. He went to see his primary care doctor and was advised to come to the hospital because of hyponatremia. He denies any fevers, no chills, no chest pain or shortness of breath. He has not been nauseous. His intake is fair. He denies any vomiting, diarrhea, fluid losses, etc. He is not in more than usual pain. He does have chronic pain in the upper arms and his muscles, but does not report any significant worsening. He is not taking any additional medications for his pain. I reviewed his home medications also. On admission, his sodium was 122, improved to 126 this morning. We have been asked to provide further input for the same. 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 3. History of polymyalgia rheumatica. 4. History of GERD. 5. Hiatal hernia. 6. Prostate CA. 7. Hypertension. 8. Coronary artery disease with stenting in the past. 9. Diverticulosis. 10. Colon polyps. HOME MEDICATIONS: Reviewed. He is on lovastatin, prednisone, olmesartan, cyanocobalamin, folic acid, calcium citrate, ferrous sulfate, [place] [address] CONSULTATION Name: JUAN C RED Chayo Room: [address]#: [id number] Admission: 02/26/18 Attend Phys: Mitchell Torres MD Discharge: 03/02/18 Date of : 38 Report #: [id number] and lansoprazole. REVIEW OF SYSTEMS: He presently denies any nausea or vomiting. He is not in significant pain. No fevers, rigors or chills reported. PERSONAL, SOCIAL AND FAMILY HISTORY: No smoking reported. Occasional alcohol. No street drug use. PHYSICAL EXAMINATION: GENERAL: On my examination, he appears comfortable. He is awake and alert, answering all questions appropriately. VITAL SIGNS: His blood pressure is 148/97 this morning, pulse rate is 103, temperature is 37.1. HEENT: His mucous membranes are moist. LUNGS: Diminished, but clear bilaterally. HEART: Regular S1, S2. ABDOMEN: Soft. EXTREMITIES: Show trace edema on the lower extremities, but not sure if this is chronic. NEUROLOGIC: Grossly stable for higher mental functions. LABORATORY DATA: White count is 5.2, hemoglobin is 11.4. Sodium is 126 this morning, potassium is 4.6, chloride 94, bicarbonate 26, BUN is 10, creatinine 0.7, glucose 100, calcium 7.9. TSH is 1.6. Albumin is 3. Chest x-ray was on admission yesterday, which showed increased bibasilar densities more suggestive of atelectasis than of pneumonia, but no nodules or masses were noted. Urinalysis was clear. Urine sodium is 88. Urine osmolality and serum osmolality are pending. ASSESSMENT AND PLAN: 1. The patient is 78 years old. He was admitted with hyponatremia. He appears fairly euvolemic. 2. No obvious precipitating factors noticed for hyponatremia. No nausea, no uncontrolled pain. 3. Polymyalgia rheumatica. 4. 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 PLAN: 1. Hyponatremia. Urine and serum osmolalities are pending. 2. Urine sodium is high. 3. Keep the patient on fluid restriction 1.5 liters. 4. Decrease the normal saline to 50 mL an hour. 5. A.m. cortisol levels ordered. 6. Chest x-ray is negative for any nodules or space occupying lesions. 7. If the sodium levels do not improve, may need [place] [address] CONSULTATION Name: JUAN C RED Chayo Room: [address]#: [id number] Admission: 02/26/18 Attend Phys: Mitchell Torres MD Discharge: 03/02/18 Date of : 38 Report #: [id number] Thank you for allowing us to be part of care of the patient. We will continue to follow and provide necessary support. <ELECTRONICALLY SIGNED> By: Axel Yoon MD 03/16/18 0714 0834 [id number] Yoon MD /nt
== END 2018-03-02 16:54 | disposition home or self-care (01) | DRG 644 ==
LOC: M.ERS 15:05 → M.TBA-ER 16:45 → M.2W 16:45
PROVIDERS: Family Medicine; Internal Medicine Nephrology; Personal Emergency Response Attendant; ADMIT Internal Medicine
DX: E22.2 Syndrome of inappropriate secretion of antidiuretic hormone (principal); E44.1 Mild protein-calorie malnutrition; K21.9 Gastro-esophageal reflux disease without esophagitis; I10 Essential (primary) hypertension; F44.4 Conversion disorder with motor symptom or deficit; I25.10 Atherosclerotic heart disease of native coronary artery without angina pectoris; K57.90 Diverticulosis of intestine, part unspecified, without perforation or abscess without bleeding; M35.3 Polymyalgia rheumatica; R00.0 Tachycardia, unspecified; M75.102 Unspecified rotator cuff tear or rupture of left shoulder, not specified as traumatic; M19.012 Primary osteoarthritis, left shoulder; M75.101 Unspecified rotator cuff tear or rupture of right shoulder, not specified as traumatic; M65.9 Synovitis and tenosynovitis, unspecified; Z85.46 Personal history of malignant neoplasm of prostate; Z95.5 Presence of coronary angioplasty implant and graft; Z88.6 Allergy status to analgesic agent; Z88.8 Allergy status to other drugs, medicaments and biological substances; Z68.23 Body mass index [BMI] 23.0-23.9, adult; Z86.010 Personal history of colon polyps; Z79.82 Long term (current) use of aspirin; Z79.899 Other long term (current) drug therapy

== ENCOUNTER → 2018-05-31 | Outpatient (CLI) | payer MEDICARE ==
[~2018-05-31] MED LIST changes: +CALCIUM CITRAT250 MG PO; +PREDNISONE 20 M20 MG PO
== END ==
LOC: M.LAB 15:37
DX: R00.0 Tachycardia, unspecified (principal)

== ENCOUNTER → 2018-06-12 | Outpatient (CLI) | payer MEDICARE ==
--- NOTE | 2018-06-12 15:34 | 2DMMODE ---
[place] [address] 2 D/M-MODE ECHOCARDIOGRAM Name: NEDAJUAN C W Room: [facility]#: [id number] Admission: 06/12/18 Attend Phys: REED Smiley Discharge: Date of : 36 Date of Service: 06/12/18 1533 Report #: [id number] THIS REPORT FOR: //name// APPROVED REPORT Study performed: 06/12/2018 13:02:41 EXAM: Comprehensive 2D, Doppler, and color-flow Echocardiogram Patient Location: Out-Patient BSA: 2.02 HR: 98 bpm BP: 106/64 mmHg Other Information Study Quality: Good Indications Tachycardia 2D Dimensions IVSd: 13.68 (7-11mm) LVOT Diam: 20.68 (18-24mm) LVDd: 39.88 mm PWd: 10.88 (7-11mm) Ascending Ao: 35.31 (22-36mm) LVDs: 23.29 (25-40mm) Aortic Root: 26.84 mm Volumes Left Atrial Volume (Systole) LA ESV Index: 15.60 mL/m2 Aortic Valve AoV Peak William.: 2.35 m/s AO Peak Gr.: 22.14 mmHg LVOT Max P.51 mmHg AO Mean Gr.: 13.37 mmHg LVOT Mean P.22 mmHg LVOT Max V: 1.06 m/s AO V2 VTI: 41.05 cm LVOT Mean V: 0.68 m/s KENRICK (VTI): 1.93 cm2 LVOT V1 VTI: 23.57 cm AI [place]: 4.53 m/s2 AI PHT: 354.83 ms Mitral Valve E/A Ratio: 0.72 MV Decel. Time: 167.83 ms MV E Max William.: 0.66 m/[place] [address] 2 D/M-MODE ECHOCARDIOGRAM Name: JUAN C RED Room: [facility]#: [id number] Admission: 06/12/18 Attend Phys: REED Smiley Discharge: Date of : 38 Date of Service: 06/12/18 1533 Report #: [id number] MV PHT: 48.67 ms MVA (PHT): 4.52 cm2 TDI E/Lateral E': 9.43 E/Medial E': 8.25 Medial E' William.: 0.08 m/s Lateral E' William.: 0.07 m/s Pulmonary Valve PV Peak William.: 0.99 m/s PV Peak Gr.: 3.90 mmHg Tricuspid Valve RAP Estimate: 5.00 mmHg TR Peak Gr.: 22.27 mmHg RVSP: 27.27 mmHg PA Pressure: 27.27 mmHg Left Ventricle The left ventricle is normal size. There is normal LV segmental wall motion. There is normal left ventricular wall thickness. Left ventricular systolic function is normal. LVEF is 60-65%. Grade I - abnormal relaxation pattern. Right Ventricle The right ventricle is normal size. The right ventricular systolic function is normal. Atria The left atrium size is normal. The right atrium size is normal. Aortic Valve Aortic valve is calcified. Moderate aortic regurgitation. Mild aortic stenosis. Mitral Valve The mitral valve is normal in structure. Mild mitral regurgitation. No evidence of mitral valve stenosis. Tricuspid Valve The tricuspid valve is normal in structure. Mild tricuspid regurgitation. Pulmonic Valve The pulmonary valve is normal in structure. [place] [address] 2 D/M-MODE ECHOCARDIOGRAM Name: NEDAJUAN C W Room: [facility]#: [id number] Admission: 06/12/18 Attend Phys: REED Smiley Discharge: Date of : 38 Date of Service: 06/12/18 1533 Report #: [id number] Great Vessels The aortic root is normal in size. IVC is not well visualized. Pericardium There is no pericardial effusion. <Conclusion> The left ventricle is normal size. There is normal left ventricular wall thickness. Left ventricular systolic function is normal. LVEF is 60-65%. Grade I - abnormal relaxation pattern. Aortic valve is calcified. Moderate aortic regurgitation. Mild aortic stenosis. Mild mitral regurgitation. Mild tricuspid regurgitation. Mild pulmonic regurgitation. <ELECTRONICALLY SIGNED> By: Cayden Calderon MD, FACC 06/12/18 1533 1533 1533 Cayden Calderon MD, FACC /INF
== END ==
LOC: M.CRD 12:38
DX: I08.3 Combined rheumatic disorders of mitral, aortic and tricuspid valves (principal); I25.10 Atherosclerotic heart disease of native coronary artery without angina pectoris; R00.0 Tachycardia, unspecified; R42 Dizziness and giddiness; R53.1 Weakness

== ENCOUNTER → 2019-02-21 | Outpatient (CLI) | payer MEDICARE | LOC: M.LAB 15:50 | DX: I25.10 Atherosclerotic heart disease of native coronary artery without angina pectoris (principal); G82.20 Paraplegia, unspecified; I10 Essential (primary) hypertension; M25.512 Pain in left shoulder; G89.29 Other chronic pain; M54.2 Cervicalgia; Z86.69 Personal history of other diseases of the nervous system and sense organs ==

== ENCOUNTER → 2019-02-27 | Outpatient (CLI) | payer MEDICARE | LOC: M.MRI 02-18 14:09 | DX: S43.491A Other sprain of right shoulder joint, initial encounter (principal); S43.492A Other sprain of left shoulder joint, initial encounter; M19.012 Primary osteoarthritis, left shoulder; M19.011 Primary osteoarthritis, right shoulder; M75.102 Unspecified rotator cuff tear or rupture of left shoulder, not specified as traumatic; M75.101 Unspecified rotator cuff tear or rupture of right shoulder, not specified as traumatic; M54.2 Cervicalgia; I10 Essential (primary) hypertension; G82.20 Paraplegia, unspecified; I25.10 Atherosclerotic heart disease of native coronary artery without angina pectoris; Z86.69 Personal history of other diseases of the nervous system and sense organs; X58.XXXA Exposure to other specified factors, initial encounter; Y93.89 Activity, other specified; Y92.89 Other specified places as the place of occurrence of the external cause; Y99.8 Other external cause status ==

== ENCOUNTER → 2019-03-13 | Outpatient (CLI) | payer MEDICARE | LOC: M.MRI 02-18 14:14 | DX: M47.812 Spondylosis without myelopathy or radiculopathy, cervical region (principal); M43.12 Spondylolisthesis, cervical region; G89.29 Other chronic pain; I67.82 Cerebral ischemia; G31.9 Degenerative disease of nervous system, unspecified; M25.511 Pain in right shoulder; M25.512 Pain in left shoulder; I25.10 Atherosclerotic heart disease of native coronary artery without angina pectoris; I10 Essential (primary) hypertension; Z86.69 Personal history of other diseases of the nervous system and sense organs ==

== ENCOUNTER → 2019-08-05 | Outpatient (CLI) | payer MEDICARE | LOC: M.WC 13:00 | DX: E11.622 Type 2 diabetes mellitus with other skin ulcer (principal); L97.812 Non-pressure chronic ulcer of other part of right lower leg with fat layer exposed; S81.801A Unspecified open wound, right lower leg, initial encounter; I89.0 Lymphedema, not elsewhere classified; I48.91 Unspecified atrial fibrillation; M19.90 Unspecified osteoarthritis, unspecified site; E78.5 Hyperlipidemia, unspecified; I10 Essential (primary) hypertension; G47.30 Sleep apnea, unspecified; Z85.46 Personal history of malignant neoplasm of prostate; Z86.718 Personal history of other venous thrombosis and embolism; Z79.82 Long term (current) use of aspirin; X58.XXXA Exposure to other specified factors, initial encounter; Y93.89 Activity, other specified; Y92.89 Other specified places as the place of occurrence of the external cause; Y99.8 Other external cause status ==

== ENCOUNTER → 2019-08-12 | Outpatient (CLI) | payer MEDICARE | LOC: M.WC 04:34 | DX: E11.622 Type 2 diabetes mellitus with other skin ulcer (principal); L97.812 Non-pressure chronic ulcer of other part of right lower leg with fat layer exposed; S81.801D Unspecified open wound, right lower leg, subsequent encounter; E78.5 Hyperlipidemia, unspecified; G47.30 Sleep apnea, unspecified; I89.0 Lymphedema, not elsewhere classified; G61.0 Guillain-Barre syndrome; I48.91 Unspecified atrial fibrillation; I10 Essential (primary) hypertension; M19.90 Unspecified osteoarthritis, unspecified site; Z86.718 Personal history of other venous thrombosis and embolism; Z85.46 Personal history of malignant neoplasm of prostate; W19.XXXD Unspecified fall, subsequent encounter ==

== ENCOUNTER → 2019-08-15 | Outpatient (CLI) | payer MEDICARE | LOC: M.WC 03:37 | DX: E11.622 Type 2 diabetes mellitus with other skin ulcer (principal); L97.811 Non-pressure chronic ulcer of other part of right lower leg limited to breakdown of skin; S81.801D Unspecified open wound, right lower leg, subsequent encounter; G47.30 Sleep apnea, unspecified; G61.0 Guillain-Barre syndrome; E78.5 Hyperlipidemia, unspecified; I89.0 Lymphedema, not elsewhere classified; I48.91 Unspecified atrial fibrillation; I10 Essential (primary) hypertension; M19.90 Unspecified osteoarthritis, unspecified site; Z86.718 Personal history of other venous thrombosis and embolism; Z85.46 Personal history of malignant neoplasm of prostate; W19.XXXD Unspecified fall, subsequent encounter ==

== ENCOUNTER → 2019-08-21 | Outpatient (CLI) | payer MEDICARE | LOC: M.WC 02:23 | DX: E11.622 Type 2 diabetes mellitus with other skin ulcer (principal); L97.811 Non-pressure chronic ulcer of other part of right lower leg limited to breakdown of skin; S81.801D Unspecified open wound, right lower leg, subsequent encounter; G47.30 Sleep apnea, unspecified; G61.0 Guillain-Barre syndrome; E78.5 Hyperlipidemia, unspecified; I89.0 Lymphedema, not elsewhere classified; I10 Essential (primary) hypertension; I48.91 Unspecified atrial fibrillation; M19.90 Unspecified osteoarthritis, unspecified site; Z86.718 Personal history of other venous thrombosis and embolism; Z85.46 Personal history of malignant neoplasm of prostate; W19.XXXD Unspecified fall, subsequent encounter ==

== ENCOUNTER → 2019-08-26 | Outpatient (CLI) | payer MEDICARE | LOC: M.WC 04:27 | DX: E11.622 Type 2 diabetes mellitus with other skin ulcer (principal); L97.811 Non-pressure chronic ulcer of other part of right lower leg limited to breakdown of skin; S81.801D Unspecified open wound, right lower leg, subsequent encounter; I89.0 Lymphedema, not elsewhere classified; I87.8 Other specified disorders of veins; I48.91 Unspecified atrial fibrillation; I10 Essential (primary) hypertension; E78.5 Hyperlipidemia, unspecified; G47.30 Sleep apnea, unspecified; G61.0 Guillain-Barre syndrome; M19.90 Unspecified osteoarthritis, unspecified site; Z86.718 Personal history of other venous thrombosis and embolism; Z85.46 Personal history of malignant neoplasm of prostate; W19.XXXD Unspecified fall, subsequent encounter ==

== ENCOUNTER → 2019-08-29 | Outpatient (CLI) | payer MEDICARE | LOC: M.WC 03:43 | DX: E11.622 Type 2 diabetes mellitus with other skin ulcer (principal); L97.811 Non-pressure chronic ulcer of other part of right lower leg limited to breakdown of skin; S81.801D Unspecified open wound, right lower leg, subsequent encounter; I89.0 Lymphedema, not elsewhere classified; I48.91 Unspecified atrial fibrillation; I10 Essential (primary) hypertension; E78.5 Hyperlipidemia, unspecified; G61.0 Guillain-Barre syndrome; G47.30 Sleep apnea, unspecified; M19.90 Unspecified osteoarthritis, unspecified site; Z86.718 Personal history of other venous thrombosis and embolism; Z85.46 Personal history of malignant neoplasm of prostate; W19.XXXD Unspecified fall, subsequent encounter ==

== ENCOUNTER → 2019-09-02 | Outpatient (CLI) | payer MEDICARE ==
[~2019-09-02] MED LIST changes: +ASA81BEC PO; +COLACE100 MG PO; +KEFLEX500 M1 PO; +PRILOSEC OTC20 MG PO
== END ==
LOC: M.WC 04:37
DX: E11.622 Type 2 diabetes mellitus with other skin ulcer (principal); L97.811 Non-pressure chronic ulcer of other part of right lower leg limited to breakdown of skin; S81.801D Unspecified open wound, right lower leg, subsequent encounter; E78.5 Hyperlipidemia, unspecified; G47.30 Sleep apnea, unspecified; G61.0 Guillain-Barre syndrome; I89.0 Lymphedema, not elsewhere classified; I48.91 Unspecified atrial fibrillation; I10 Essential (primary) hypertension; M19.90 Unspecified osteoarthritis, unspecified site; Z86.718 Personal history of other venous thrombosis and embolism; Z85.46 Personal history of malignant neoplasm of prostate; W19.XXXD Unspecified fall, subsequent encounter

== ENCOUNTER → 2019-09-05 | Outpatient (CLI) | payer MEDICARE | LOC: M.WC 02:03 | DX: E11.622 Type 2 diabetes mellitus with other skin ulcer (principal); L97.811 Non-pressure chronic ulcer of other part of right lower leg limited to breakdown of skin; S81.801D Unspecified open wound, right lower leg, subsequent encounter; I89.0 Lymphedema, not elsewhere classified; I48.91 Unspecified atrial fibrillation; I10 Essential (primary) hypertension; G61.0 Guillain-Barre syndrome; G47.30 Sleep apnea, unspecified; E78.5 Hyperlipidemia, unspecified; M19.90 Unspecified osteoarthritis, unspecified site; Z85.46 Personal history of malignant neoplasm of prostate; Z86.73 Personal history of transient ischemic attack (TIA), and cerebral infarction without residual deficits; W19.XXXD Unspecified fall, subsequent encounter ==

== ENCOUNTER 2019-09-10 13:09 | Inpatient (IN) | payer MEDICARE ==
[~2019-09-10] VITALS: Ht 177.8 cm; Wt 77.6 kg
--- NOTE | ~2019-09-10 | CON ---
[address] [address] CONSULTATION Name: JUAN C RED Room: [address] IN M.R.#: [id number] Admission: 09/10/19 Attend Phys: Phillip Can MD Discharge: Date of : 38 Report #: [id number] THIS REPORT FOR: //name// cc: Jace Thakkar MD, David L. MD ~ THIS REPORT FOR: //name// CC: Jace Can DATE OF SERVICE: 09/13/2019 HISTORY OF PRESENT ILLNESS: This is a pleasant 79-year-old gentleman with past medical history significant for Guillain-[place] syndrome, polymyalgia rheumatica, who presented to the hospital with weakness and fall. The GI service has been consulted because of black-colored emesis and black colored stools. The patient denies any significant abdominal pain. He does report nausea and vomiting, especially with food. He denies any weight loss or diarrhea. The patient reports that he has had ulcers in the past, but his last EGD and colonoscopy were more than 10 years back. PAST MEDICAL HISTORY: The patient has a history of polymyalgia rheumatica, Guillain-[place] syndrome, hypertension, gastroesophageal reflux disease, coronary artery disease. PAST SURGICAL HISTORY: The patient has had 3 cardiac stents placed. SOCIAL HISTORY: The patient denies smoking, alcohol or recreational drug use. FAMILY HISTORY: No family history of gastric or colonic malignancy. REVIEW OF SYSTEMS: Comprehensive 10-point review of systems is negative except for what was mentioned in the HPI. PHYSICAL EXAMINATION: VITAL SIGNS: Blood pressure 147/85, pulse rate 109, temperature 36.7. GENERAL: The patient is alert, awake, oriented x 3. HEENT: Pupils are equal, round, reactive to light and accommodation. Mucous membranes are moist. There is no congestion. LUNGS: Clear to auscultation bilaterally. CARDIOVASCULAR: Rate and rhythm regular, S1, S2 present. ABDOMEN: Soft. There is no distention, guarding or rigidity. EXTREMITIES: Warm, well perfused. There is no edema. SKIN: Warm and dry. LABORATORY DATA: Hemoglobin 12.5, hematocrit 36.5, platelet count 221, [place] [address] CONSULTATION Name: JUAN C RED Room: [address] IN [facility]#: [id number] Admission: 09/10/19 Attend Phys: Phillip Can MD Discharge: Date of : 38 Report #: [id number] count 7.8. BUN 38, creatinine 1. INR 1.0. ASSESSMENT AND PLAN: Pleasant 79-year-old gentleman with history of polymyalgia rheumatica, presenting with weakness and lethargy. The patient also noted to have coffee-ground emesis and dark colored stools. The patient does have a slightly elevated BUN and creatinine ratio suggestive of bleeding in the upper GI tract. I would recommend getting an EGD, we will plan for this on Sunday. Keep the patient on a clear liquid diet until then. If his hemoglobin drops significantly tomorrow, we can consider doing it on a more urgent basis. By: [id number] Desai MD /nt
--- NOTE | ~2019-09-10 | PROC ---
[facility] [address] [place] [address] PROCEDURE REPORT Name: JUAN C RED Room: [address] ADM IN M.R.#: [id number] Admission: 09/10/19 Attend Phys: Phillip Can MD Discharge: Date of : 38 Report #: [id number] THIS REPORT FOR: //name// cc: Jace Thakkar MD, David L. MD ~ THIS REPORT FOR: //name// For GI report, please see the Provation report in Perceptive 7 content. By: [id number] Records Staff ZACHERY /CONCHA
[~2019-09-10 13:09] MED LIST changes: -ASA81BEC PO; -COLACE100 MG PO; -KEFLEX500 M1 PO; -PRILOSEC OTC20 MG PO
[2019-09-10 13:11] VITALS: BP 200/120
[2019-09-10] MEDS ORDERED: ASA81BEC PO (13:25)
[2019-09-10] MEDS ORDERED: PRILOSEC OTC20 MG PO (13:25)
[2019-09-10] MEDS ORDERED: NITROSTAT0.4 M1 SUBLING (13:26)
[2019-09-10] MEDS ORDERED: COLACE100 MG PO (13:26)
[2019-09-10 14:19] LABS: CALCIUM 8.9 mg/dL (8.5-10.1); CREATININE 0.8 mg/dL (0.6-1.3)
[2019-09-10 14:23] LABS: ALBUMIN 3.1 g/dL (3.4-5.0); MAGNESIUM 1.8 mg/dL (1.8-2.4); TOTAL BILIRUBIN 0.9 mg/dL (<0.1-1.0); TOTAL PROTEIN 6.7 g/dL (6.4-8.2)
[2019-09-10 15:14] LABS: ABSOLUTE LYMPHOCYTES 0.5 thou/uL (0.8-5.3); ABSOLUTE MONOCYTES 0.7 thou/uL (0.0-1.2); ABSOLUTE NEUTROPHILS 6.5 thou/uL (1.6-8.1); BASOPHILS 0.1 %; EOSINOPHILS 0.3 %; HEMATOCRIT 39.9 % (42.0-52.0); HEMOGLOBIN 13.7 gm/dL (14.0-18.0); LYMPHOCYTES 6.5 %; MCHC 34.4 g/dL (28.0-37.0); MCV 95.8 fL (80.0-100.0); MONOCYTES 8.5 %; MPV 6.6 fl. (7.2-11.1); NUCLEATED RBCS 0 /100WBC; PLATELET COUNT* 204 thou/uL (150-400); POLYS 84.6 %; RBC 4.17 mil/uL (4.50-6.00); WBC 7.7 thou/uL (4.0-11.0)
[2019-09-10 15:54] LABS: URINE BILIRUBIN NEGATIVE (Negative); URINE BLOOD NEGATIVE (Negative); URINE CLARITY CLEAR; URINE COLOR YELLOW; URINE GLUCOSE-RANDOM NEGATIVE (Negative); URINE KETONES NEGATIVE (Negative); URINE LEUKOCYTES-REFLEX NEGATIVE (Negative); URINE NITRITE-REFLEX NEGATIVE (Negative); URINE PROTEIN NEGATIVE (Negative); URINE SPECIFIC GRAVITY 1.025 (1.005-1.030); URINE UROBILINOGEN 0.2 E.U./dl (0.2-1.0)
--- NOTE | 2019-09-10 15:56 | EKG ---
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1940 Requested By: Sapna Williamson Order Number: [id number] MD: Jace Crespo Measurements Intervals [place] Rate: 98 P: 9 ND: 150 QRS: 1 QRSD: 97 T: 70 QT: 341 QTc: 436 Interpretive Statements Sinus rhythm Borderline ST depression, lateral leads Compared to ECG 02/26/2018 15:41:38 Sinus tachycardia no longer present Atrial premature complex(es) no longer present Electronically Signed On 09-10-2019 15:55:43 CDT by Jace Crespo [email or web address] <ELECTRONICALLY SIGNED> By: Jace Crespo MD, [facility] 09/10/19 1555 1335 1335 Jace Crespo MD, [facility] /EPI
[2019-09-10 18:00] VITALS: BP 182/87
[2019-09-10] MEDS ORDERED: KEFLEX500 M1 PO (18:19)
[2019-09-10 18:23] VITALS: BP 177/100
[2019-09-10 20:00] VITALS: BP 113/72
[2019-09-11 00:11] VITALS: BP 129/83
[2019-09-11 04:05] VITALS: BP 134/84
[2019-09-11 04:45] LABS: HEMATOCRIT 36.8 % (42.0-52.0); HEMOGLOBIN 12.7 gm/dL (14.0-18.0); MCH 33.1 pg (26.0-34.0); MCHC 34.5 g/dL (28.0-37.0); MCV 95.8 fL (80.0-100.0); MPV 6.5 fl. (7.2-11.1); RBC 3.84 mil/uL (4.50-6.00); RDW-CV 15.2 % (10.5-14.5); WBC 4.9 thou/uL (4.0-11.0)
[2019-09-11 04:56] LABS: CALCIUM 8.4 mg/dL (8.5-10.1); CREATININE 0.8 mg/dL (0.6-1.3); MAGNESIUM 1.8 mg/dL (1.8-2.4); POTASSIUM 4.8 mmol/L (3.5-5.1)
[2019-09-11 08:00] VITALS: BP 175/105
[2019-09-11 20:00] VITALS: BP 136/89
[2019-09-11 23:55] VITALS: BP 156/97
[2019-09-12 07:50] VITALS: BP 142/91
[2019-09-12 12:18] VITALS: BP 154/113
[2019-09-12 22:00] VITALS: BP 174/111
[2019-09-13] VITALS: BP 153/96
[2019-09-13 05:46] LABS: ABSOLUTE LYMPHOCYTES 0.3 thou/uL (0.8-5.3); ABSOLUTE MONOCYTES 0.7 thou/uL (0.0-1.2); ABSOLUTE NEUTROPHILS 6.8 thou/uL (1.6-8.1); HEMATOCRIT 36.5 % (42.0-52.0); HEMOGLOBIN 12.5 gm/dL (14.0-18.0); LYMPHOCYTES 3.6 %; MCH 32.9 pg (26.0-34.0); MCHC 34.4 g/dL (28.0-37.0); MCV 95.8 fL (80.0-100.0); MONOCYTES 8.7 %; MPV 6.8 fl. (7.2-11.1); NUCLEATED RBCS 0 /100WBC; PLATELET COUNT* 221 thou/uL (150-400); POLYS 87.7 %; RBC 3.81 mil/uL (4.50-6.00); WBC 7.8 thou/uL (4.0-11.0)
[2019-09-13 06:04] LABS: ALBUMIN 2.7 g/dL (3.4-5.0); CALCIUM 8.4 mg/dL (8.5-10.1); POTASSIUM 4.3 mmol/L (3.5-5.1); PROTIME 10.3 Seconds (9.20-11.50); TOTAL BILIRUBIN 0.6 mg/dL (<0.1-1.0); TOTAL PROTEIN 5.8 g/dL (6.4-8.2)
[2019-09-13 08:00] VITALS: BP 153/100
[2019-09-13 12:30] VITALS: BP 147/85
[2019-09-13 18:33] LABS: HEMATOCRIT 33.3 % (42.0-52.0); HEMOGLOBIN 11.5 gm/dL (14.0-18.0); MCH 33.1 pg (26.0-34.0); MCHC 34.7 g/dL (28.0-37.0); MCV 95.6 fL (80.0-100.0); MPV 6.2 fl. (7.2-11.1); RBC 3.48 mil/uL (4.50-6.00); RDW-CV 14.9 % (10.5-14.5); WBC 9.1 thou/uL (4.0-11.0)
[2019-09-13 20:00] VITALS: BP 137/95
[2019-09-14] VITALS: BP 153/87
[2019-09-14 04:30] LABS: HEMATOCRIT 31.4 % (42.0-52.0); HEMOGLOBIN 10.6 gm/dL (14.0-18.0); MCH 32.7 pg (26.0-34.0); MCHC 33.7 g/dL (28.0-37.0); MCV 97.1 fL (80.0-100.0); MPV 6.9 fl. (7.2-11.1); RBC 3.23 mil/uL (4.50-6.00); RDW-CV 15.3 % (10.5-14.5); WBC 10.3 thou/uL (4.0-11.0)
[2019-09-14 04:45] LABS: CALCIUM 7.6 mg/dL (8.5-10.1); MAGNESIUM 2.2 mg/dL (1.8-2.4); POTASSIUM 3.7 mmol/L (3.5-5.1)
[2019-09-14 07:55] VITALS: BP 137/91
[2019-09-14 14:27] LABS: HEMOGLOBIN 9.9 gm/dL (14.0-18.0)
[2019-09-14 15:00] VITALS: BP 158/93
[2019-09-14 21:50] VITALS: BP 161/92
[2019-09-15 04:41] LABS: HEMOGLOBIN 9.4 gm/dL (14.0-18.0); MCH 33.2 pg (26.0-34.0); MCHC 34.6 g/dL (28.0-37.0); MPV 6.7 fl. (7.2-11.1); RBC 2.82 mil/uL (4.50-6.00)
[2019-09-15 05:05] LABS: CALCIUM 7.1 mg/dL (8.5-10.1); CREATININE 0.8 mg/dL (0.6-1.3); MAGNESIUM 2.1 mg/dL (1.8-2.4); POTASSIUM 3.8 mmol/L (3.5-5.1)
[2019-09-15 08:00] VITALS: BP 122/78
[2019-09-15 12:16] VITALS: BP 122/78
[2019-09-15 14:15] VITALS: BP 146/82
[2019-09-15 15:46] LABS: URINE BILIRUBIN NEGATIVE (Negative); URINE BLOOD NEGATIVE (Negative); URINE CLARITY CLEAR; URINE COLOR YELLOW; URINE GLUCOSE-RANDOM NEGATIVE (Negative); URINE KETONES NEGATIVE (Negative); URINE LEUKOCYTES-REFLEX NEGATIVE (Negative); URINE NITRITE-REFLEX NEGATIVE (Negative); URINE PROTEIN NEGATIVE (Negative); URINE SPECIFIC GRAVITY >= 1.030 (1.005-1.030); URINE UROBILINOGEN 0.2 E.U./dl (0.2-1.0)
[2019-09-15 20:00] VITALS: BP 142/85
[2019-09-16] VITALS: BP 100/33; BP 144/81
[2019-09-16 05:33] LABS: HEMATOCRIT 22.5 % (42.0-52.0); HEMOGLOBIN 7.7 gm/dL (14.0-18.0); MCH 32.8 pg (26.0-34.0); MCHC 34.2 g/dL (28.0-37.0); MCV 95.9 fL (80.0-100.0); MPV 6.9 fl. (7.2-11.1); RBC 2.35 mil/uL (4.50-6.00); WBC 4.5 thou/uL (4.0-11.0)
[2019-09-16 09:01] VITALS: BP 145/78
[2019-09-16 12:00] VITALS: BP 156/82
[2019-09-16 16:57] VITALS: BP 187/94
[2019-09-16 21:29] VITALS: BP 151/93
[2019-09-16 21:30] VITALS: BP 151/93
[2019-09-17] VITALS: BP 174/85
[2019-09-17 04:00] VITALS: BP 136/73
[2019-09-17 06:36] LABS: HEMOGLOBIN 7.7 gm/dL (14.0-18.0); MCH 33.2 pg (26.0-34.0); MCHC 34.9 g/dL (28.0-37.0); MCV 94.9 fL (80.0-100.0); MPV 6.4 fl. (7.2-11.1); RBC 2.32 mil/uL (4.50-6.00); RDW-CV 15.2 % (10.5-14.5); WBC 4.5 thou/uL (4.0-11.0)
[2019-09-17 06:47] LABS: CALCIUM 7.2 mg/dL (8.5-10.1); CREATININE 0.7 mg/dL (0.6-1.3); POTASSIUM 3.8 mmol/L (3.5-5.1)
[2019-09-17 08:15] VITALS: BP 131/87
[2019-09-17 12:19] VITALS: BP 140/78
[2019-09-17 21:00] VITALS: BP 154/83
[2019-09-18 04:36] LABS: CALCIUM 6.5 mg/dL (8.5-10.1); CREATININE 0.6 mg/dL (0.6-1.3); MAGNESIUM 1.7 mg/dL (1.8-2.4); POTASSIUM 3.2 mmol/L (3.5-5.1)
[2019-09-18 08:05] VITALS: BP 153/83
[2019-09-18] MEDS ORDERED: RITALIN10 MG PO (08:12)
[2019-09-18] MEDS ORDERED: CEFDINIR300 MG PO (08:12)
[2019-09-18] MEDS ORDERED: CARAFATE 1 GM TA1 G1 PO (08:12)
[2019-09-18] MEDS ORDERED: PANTOPRAZOLE SO40 M1 PO (08:12)
[2019-09-18] MEDS ORDERED: AZITHROMYCIN 2250 MG PO (08:12)
[2019-09-18] MEDS ORDERED: CITRATE OF MAG296 M1 PO (08:14)
[2019-09-18] MEDS ORDERED: COLACE 100 MG100 MG PO (08:14)
[2019-09-18] MEDS ORDERED: MIRALAX17 GM PO (08:14)
[2019-09-18 11:21] VITALS: BP 154/83
== END 2019-09-18 14:45 | DRG 377 ==
LOC: M.ERS 13:09 → M.TBA-ER 15:37 → M.2W 15:37 → M.3W 09-14 07:54 → M.2W 09-15 16:55 → M.3W 09-17 18:02
PROVIDERS: Family Medicine; Internal Medicine Gastroenterology; Personal Emergency Response Attendant; ADMIT Internal Medicine
PROC: 0DJ08ZZ Inspection of Upper Intestinal Tract, Via Natural or Artificial Opening Endoscopic (ICD-10-PCS; principal; 2019-09-15)
DX: K25.4 Chronic or unspecified gastric ulcer with hemorrhage (principal); A41.89 Other specified sepsis; J69.0 Pneumonitis due to inhalation of food and vomit; I16.1 Hypertensive emergency; E87.0 Hyperosmolality and hypernatremia; G82.20 Paraplegia, unspecified; E44.1 Mild protein-calorie malnutrition; E87.1 Hypo-osmolality and hyponatremia; I10 Essential (primary) hypertension; K21.9 Gastro-esophageal reflux disease without esophagitis; G47.419 Narcolepsy without cataplexy; G62.9 Polyneuropathy, unspecified; M35.3 Polymyalgia rheumatica; Z66 Do not resuscitate; M47.896 Other spondylosis, lumbar region; D53.9 Nutritional anemia, unspecified; E86.1 Hypovolemia; R29.6 Repeated falls; K59.00 Constipation, unspecified; K20.9 Esophagitis, unspecified; K44.9 Diaphragmatic hernia without obstruction or gangrene; Z95.5 Presence of coronary angioplasty implant and graft; Z79.82 Long term (current) use of aspirin; Z79.899 Other long term (current) drug therapy; Z88.5 Allergy status to narcotic agent; Z88.8 Allergy status to other drugs, medicaments and biological substances; Z68.24 Body mass index [BMI] 24.0-24.9, adult

== ENCOUNTER 2019-10-06 12:39 | Inpatient (IN) | payer MEDICARE ==
[~2019-10-06] VITALS: Ht 180.3 cm; Wt 69.7 kg
[~2019-10-06 12:39] MED LIST changes: +ASA81BEC PO; +AZITHROMYCIN 2250 MG PO; +CARAFATE 1 GM TA1 G1 PO; +CEFDINIR300 MG PO; +CITRATE OF MAG296 M1 PO; +COLACE 100 MG100 MG PO; +COLACE100 MG PO; +KEFLEX500 M1 PO; +MIRALAX17 GM PO; +PANTOPRAZOLE SO40 M1 PO; +PRILOSEC OTC20 MG PO
[2019-10-06 12:40] VITALS: BP 147/102
[2019-10-06 13:35] LABS: ABSOLUTE BASOPHILS 0.1 thou/uL (0.0-0.2); ABSOLUTE EOSINOPHILS 0.1 thou/uL (0.0-0.7); ABSOLUTE LYMPHOCYTES 0.7 thou/uL (0.8-5.3); ABSOLUTE MONOCYTES 0.6 thou/uL (0.0-1.2); ABSOLUTE NEUTROPHILS 6.3 thou/uL (1.6-8.1); EOSINOPHILS 0.9 %; HEMATOCRIT 31.9 % (42.0-52.0); HEMOGLOBIN 10.9 gm/dL (14.0-18.0); LYMPHOCYTES 9.6 %; MCH 32.1 pg (26.0-34.0); MCHC 34.3 g/dL (28.0-37.0); MCV 93.6 fL (80.0-100.0); MPV 6.8 fl. (7.2-11.1); NUCLEATED RBCS 0 /100WBC; PLATELET COUNT* 257 thou/uL (150-400); POLYS 80.5 %; RBC 3.41 mil/uL (4.50-6.00); WBC 7.8 thou/uL (4.0-11.0)
[2019-10-06] MEDS ORDERED: BENEFIBER1 EAC1 PO (13:36)
[2019-10-06] MEDS ORDERED: ACIDOPHILUS CA1 EAC1 PO (13:36)
[2019-10-06] MEDS ORDERED: CALCIUM500 MG PO (13:37)
[2019-10-06] MEDS ORDERED: DULCOLAX STOOL100 M1 PO (13:38)
[2019-10-06] MEDS ORDERED: FLEET ENEMA133 ML (13:38)
[2019-10-06] MEDS ORDERED: MILK OF MA400 MG/5 M PO (13:40)
[2019-10-06] MEDS ORDERED: NYSTATIN1 EAC6 (13:41)
[2019-10-06] MEDS ORDERED: VITAMIN C500 MG PO (13:42)
[2019-10-06] MEDS ORDERED: SUPER THERAVIT1 EACH PO (13:43)
[2019-10-06 13:45] LABS: CALCIUM 8.1 mg/dL (8.5-10.1); CREATININE 0.8 mg/dL (0.6-1.3); POTASSIUM 4.2 mmol/L (3.5-5.1)
[2019-10-06 13:55] LABS: ALBUMIN 2.4 g/dL (3.4-5.0); MAGNESIUM 1.5 mg/dL (1.8-2.4); TOTAL BILIRUBIN 0.5 mg/dL (<0.1-1.0); TOTAL PROTEIN 5.7 g/dL (6.4-8.2)
[2019-10-06 14:35] LABS: URINE BILIRUBIN NEGATIVE (Negative); URINE BLOOD NEGATIVE (Negative); URINE CLARITY CLEAR; URINE COLOR YELLOW; URINE GLUCOSE-RANDOM NEGATIVE (Negative); URINE KETONES NEGATIVE (Negative); URINE LEUKOCYTES-REFLEX NEGATIVE (Negative); URINE NITRITE-REFLEX NEGATIVE (Negative); URINE PROTEIN NEGATIVE (Negative); URINE SPECIFIC GRAVITY 1.015 (1.005-1.030); URINE UROBILINOGEN 0.2 E.U./dl (0.2-1.0)
--- NOTE | 2019-10-06 16:34 | EKG ---
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[facility] : 1940 Requested By: Sapna Williamson Order Number: [id number] MD: Figueroa Jeff Measurements Intervals [place] Rate: 104 P: -5 NE: 148 QRS: -13 QRSD: 87 T: 72 QT: 305 QTc: 402 Interpretive Statements Sinus tachycardia Minimal ST depression, lateral leads Baseline wander in lead(s) V2 Compared to ECG 09/10/2019 13:35:14 Sinus rate has increased ST (T wave) deviation still present Electronically Signed On 10-06-2019 16:33:07 CDT by Figueroa Jeff [email or web address] <ELECTRONICALLY SIGNED> By: Figueroa Jeff MD, FAC 10/06/19 1633 1334 1334 Figueroa Jeff MD, [facility] /EPI
[2019-10-06 18:23] VITALS: BP 135/84
[2019-10-06 20:30] VITALS: BP 109/70
[2019-10-07 00:06] VITALS: BP 128/87
[2019-10-07 06:18] LABS: ABSOLUTE BASOPHILS 0.1 thou/uL (0.0-0.2); ABSOLUTE EOSINOPHILS 0.1 thou/uL (0.0-0.7); ABSOLUTE LYMPHOCYTES 0.7 thou/uL (0.8-5.3); ABSOLUTE MONOCYTES 0.5 thou/uL (0.0-1.2); BASOPHILS 0.9 %; EOSINOPHILS 0.9 %; HEMOGLOBIN 10.7 gm/dL (14.0-18.0); LYMPHOCYTES 10.6 %; MCH 32.2 pg (26.0-34.0); MCHC 34.6 g/dL (28.0-37.0); MCV 93.2 fL (80.0-100.0); MONOCYTES 7.8 %; MPV 6.3 fl. (7.2-11.1); NUCLEATED RBCS 0 /100WBC; PLATELET COUNT* 252 thou/uL (150-400); POLYS 79.8 %; RBC 3.32 mil/uL (4.50-6.00); RDW-CV 15.2 % (10.5-14.5); WBC 6.3 thou/uL (4.0-11.0)
[2019-10-07 06:20] LABS: CREATININE 0.7 mg/dL (0.6-1.3); POTASSIUM 3.7 mmol/L (3.5-5.1)
[2019-10-07 07:50] VITALS: BP 100/64
[2019-10-07 16:27] VITALS: BP 126/78
[2019-10-07 20:15] VITALS: BP 151/89
[2019-10-08 07:20] VITALS: BP 135/87
[2019-10-08 16:12] VITALS: BP 122/79
[2019-10-08 20:20] VITALS: BP 109/77
[2019-10-09 07:49] VITALS: BP 150/86
[2019-10-09 16:32] VITALS: BP 136/85
[2019-10-09 20:00] VITALS: BP 137/86
[2019-10-10 03:49] VITALS: BP 115/63
[2019-10-10 07:30] VITALS: BP 126/66
--- NOTE | 2019-10-10 10:43 | CON ---
[address] [address] CONSULTATION Name: JUAN C RED Chayo Room: [address] IN M.R.#: [id number] Admission: 10/06/19 Attend Phys: Mitchell Torres MD Discharge: Date of : 38 Report #: [id number] THIS REPORT FOR: //name// cc: Jace Thakkar MD, David L. MD ~ THIS REPORT FOR: //name// CC: Mitchell Thakkar DATE OF SERVICE: 10/07/2019 HISTORY OF PRESENT ILLNESS: This is a pleasant 79-year-old man with past medical history significant for peripheral neuropathy, chronic constipation, hypertension, hyperlipidemia, prostate cancer who is presenting for evaluation of weakness. The GI service has been consulted for possible GI bleed. The patient denies any signs of overt GI bleeding such as hematemesis, hematochezia, melena. At baseline, he does report some constipation and difficulty and pain while passing stool. His weight has remained stable. The patient had an EGD on 09/15/2019, which showed LA grade D esophagitis. PAST MEDICAL HISTORY: Prostate cancer, peripheral neuropath, Guillain-[place] syndrome, gastroesophageal reflux disease. PAST SURGICAL HISTORY: The patient has had 3 stents placed. SOCIAL HISTORY: The patient denies smoking, alcohol or recreational drug use. FAMILY HISTORY: No family history of colon cancer or Ramesh-related neoplasia. REVIEW OF SYSTEMS: Comprehensive 10-point review of systems is negative except for what was mentioned in the HPI. PHYSICAL EXAMINATION: GENERAL: The patient is alert, awake, oriented x 3. HEENT: Pupils are equal, round, reactive to light and accommodation. Mucous membranes are moist. There is no congestion. LUNGS: Clear to auscultation bilaterally. CARDIOVASCULAR: Rate and rhythm regular, S1, S2 present. ABDOMEN: Soft. There is no distention, guarding or rigidity. LABORATORY DATA: Hemoglobin 10.7, hematocrit 31.0, platelet count 252, WBC count 6.3. Sodium 130, potassium 3.7, chloride 98, bicarbonate 26, BUN 9, creatinine 0.7. IMAGING: Abdomen and pelvis CT, large amount of stool [place] [address] CONSULTATION Name: JUAN C RED Room: [address] IN [facility]#: [id number] Admission: 10/06/19 Attend Phys: Mitchell Torres MD Discharge: Date of : 38 Report #: [id number] suggesting constipation, large hiatus hernia with most of the stomach above the diaphragm, bibasilar atelectasis. ASSESSMENT AND PLAN: A pleasant 79-year-old gentleman who is presenting for evaluation of weakness. He has known history of gastroesophageal reflux disease and esophagitis. His hemoglobin is higher than it was prior to his recent discharge. He has no overt signs of gastrointestinal bleed at this time, I would resume his regular diet and give him MiraLax 17 g b.i.d. for chronic constipation. No gastrointestinal intervention necessary at this time. <ELECTRONICALLY SIGNED> By: Jens Desai MD 10/10/19 1043 1232 [id number] Desai MD /nt
[2019-10-10 16:00] VITALS: BP 112/76
[2019-10-10 20:00] VITALS: BP 115/69
[2019-10-11] VITALS: BP 119/72
[2019-10-11 07:57] VITALS: BP 101/69
[2019-10-11] MEDS ORDERED: LOVASTATIN 20 M20 MG PO (18:26)
[2019-10-11] MEDS ORDERED: COLACE100 MG PO (20:10)
[2019-10-11] MEDS ORDERED: NITROGLYCERIN0.4 MG SUBLING (20:14)
[2019-10-11] MEDS ORDERED: MIRALAX119 GM PO (20:15)
[2019-10-13] MEDS ORDERED: CARVEDILOL3.125 MG PO (16:10)
[2019-10-13] MEDS ORDERED: TYLENOL325 MG PO (16:10)
== END 2019-10-11 16:24 | DRG 391 ==
LOC: M.ERS 12:39 → M.2W 14:37 → M.TBA-ER 14:37 → M.2W 19:02
PROVIDERS: Personal Emergency Response Attendant; ADMIT Internal Medicine
DX: K59.09 Other constipation (principal); E43 Unspecified severe protein-calorie malnutrition; K92.2 Gastrointestinal hemorrhage, unspecified; G61.0 Guillain-Barre syndrome; G82.20 Paraplegia, unspecified; K21.9 Gastro-esophageal reflux disease without esophagitis; M35.3 Polymyalgia rheumatica; G47.419 Narcolepsy without cataplexy; F32.9 Major depressive disorder, single episode, unspecified; G62.9 Polyneuropathy, unspecified; F22 Delusional disorders; E78.5 Hyperlipidemia, unspecified; I10 Essential (primary) hypertension; Z79.899 Other long term (current) drug therapy; Z79.82 Long term (current) use of aspirin; Z85.46 Personal history of malignant neoplasm of prostate; Z88.4 Allergy status to anesthetic agent; Z88.5 Allergy status to narcotic agent; Z88.8 Allergy status to other drugs, medicaments and biological substances; Z68.21 Body mass index [BMI] 21.0-21.9, adult; Z95.820 Peripheral vascular angioplasty status with implants and grafts